=== PATIENT | female | born 1955 | race Caucasian/White ===

== ENCOUNTER 2023-11-17 11:33 | Outpatient (OUT) | payer MEDICARE, MEDICAID, SELFPAY ==
--- NOTE | 2023-11-17 11:37 | MM_ITS ---
Patient Name: FLAKITA GUADALUPE MR#: [id number] : 1955 Exam Date: 11/17/2023 Ordering Doctor: DR Dragan Gómez . RADIOLOGY REPORT PROCEDURE: MM TOMOSYNTHESIS SCREENING BI COMPARISON: MG MAMM SCREEN 3D JOSAFAT CAD, 07/05/2022. MG MAMM SCREEN JOSAFAT W CAD, 10/27/2020. MG MAMM SCREEN JOSAFAT W CAD, 09/23/2017. MG MAMM JOSAFAT SCRN W CAD DIG, 07/29/2013. INDICATIONS: screening Calculator Name NCI Breast Cancer Risk Assessment Tool 5 Year Breast Cancer Risk 3.70% Lifetime Breast Cancer Risk 11.80% Personal Breast Cancer No Personal Ovarian Cancer No Treatments None Family Cancers Sister with breast cancer at age 48; Aunt-maternal with breast cancer at age ~45; Aunt-maternal with breast cancer at age ~45; Aunt-maternal with breast cancer at age ~45; Mother with etiology unkwn. cancer at age 68; Brother with lung cancer at age 66. LOCATION: [facility] BREAST COMPOSITION: Scattered areas fibroglandular density. FINDINGS: DIAGNOSTIC CATEGORY 2--BENIGN FINDING: RIGHT BREAST: No significant suspicious finding. No significant change has occurred. LEFT BREAST: No significant suspicious finding. Scattered benign-appearing lymph nodes are present. No significant change has occurred. RECOMMENDATIONS: ROUTINE MAMMOGRAM AND CLINICAL EVALUATION IN 12 MONTHS. PLEASE NOTE: A NORMAL MAMMOGRAM DOES NOT EXCLUDE THE POSSIBILITY OF BREAST CANCER. A CLINICALLY SUSPICIOUS PALPABLE LUMP SHOULD BE BIOPSIED. Dictated by: Elvin Chu M.D. on 11/19/2023 at 12:20 Approved by: Elvin Chu M.D. on 11/19/2023 at 12:22
[2023-11-17 12:35] LABS: Hematocrit 39.3 % (36.0-48.0); Hemoglobin 12.6 g/dL (12.0-16.0); Mean Corpuscular HGB Conc 32.1 g/dL (29.9-35.2); Mean Corpuscular Hemoglobin 28.3 pg (26.7-34.0); Mean Corpuscular Volume 88.1 fL (81.0-99.0); Mean Platelet Volume 11.5 fL (9.5-13.5); Platelet Count 232 10^3/uL (150-450); Red Blood Count 4.46 10^6/uL (4.20-5.40); Red Cell Distribution Width 13.2 % (11.0-15.0); White Blood Count 11.3 10^3/uL (4.0-11.0)
[2023-11-17 12:46] LABS: Estimated Average Glucose 114 mg/dL; Glycohemoglobin A1C 5.6 % (4.5-6.2)
[2023-11-17 12:49] LABS: Alanine Aminotransferase 25 U/L (14-59); Albumin Globulin Ratio 0.9; Albumin Level 3.5 g/dL (3.4-5.0); Alkaline Phosphatase 70 U/L (46-116); Aspartate Amino Transferase 11 U/L (15-37); BUN Creatinine Ratio 19.6; Bilirubin Total 0.3 mg/dL (0.2-1.0); Calcium 8.7 mg/dL (8.5-10.1); Carbon Dioxide 27.3 mmol/L (21.0-32.0); Chloride 102 mmol/L (98-107); Chol HDL Ratio 3.4; Cholesterol 201 mg/dL (<=200); Estimated GFR (African America >60 (>=60); Estimated GFR (Non-African Ame 57 (>=60); Glucose 103 mg/dL (74-106); HDL Cholesterol 59 mg/dL (40-60); Potassium 4.3 mmol/L (3.5-5.1); Sodium 140 mmol/L (136-145); Total Protein 7.5 g/dL (6.4-8.2); Triglycerides 110 mg/dL (<=150)
[2023-11-17 12:50] LABS: Free T3 2.44 pg/mL (2.18-3.98); Thyroid Stimulating Hormone 1.671 uIU/mL (0.358-3.740)
[2023-11-17 13:19] LABS: Eosinophils Absolute Manual 3.84 10^3/uL (0.00-0.70); Lymphocytes Absolute Manual 2.37 10^3/uL (1.20-3.80); Monocytes Absolute Manual 0.79 10^3/uL (0.30-0.80); Segmented Neut Absolute Manual 4.29 10^3/uL (1.4-6.5)
== END 2023-11-17 11:34 | disposition home or self-care (01) ==
LOC: MAMMO 11:33
PROVIDERS: PCP Family Medicine; Visit Provider Family Medicine
DX: Z12.31 Encounter for screening mammogram for malignant neoplasm of breast (principal); E03.9 Hypothyroidism, unspecified; F41.9 Anxiety disorder, unspecified; E78.5 Hyperlipidemia, unspecified; R73.09 Other abnormal glucose; Z12.12 Encounter for screening for malignant neoplasm of rectum; D64.9 Anemia, unspecified; E55.9 Vitamin D deficiency, unspecified; Z80.3 Family history of malignant neoplasm of breast; Z80.1 Family history of malignant neoplasm of trachea, bronchus and lung; Z80.8 Family history of malignant neoplasm of other organs or systems
CPT/HCPCS: 36415; 77063; 77067; 80053; 80061; 82306; 83036; 83540; 84436; 84443; 84481; 85007; 85027

== ENCOUNTER 2024-12-15 10:18 | Outpatient (OUT) | payer MEDICARE, MEDICAID, SELFPAY ==
[2024-12-15 10:42] LABS: Hematocrit 38.6 % (36.0-48.0); Mean Corpuscular HGB Conc 33.7 g/dL (29.9-35.2); Mean Corpuscular Volume 86.2 fL (81.0-99.0); Mean Platelet Volume 10.9 fL (9.5-13.5); Platelet Count 245 10^3/uL (150-450); Red Blood Count 4.48 10^6/uL (4.20-5.40); Red Cell Distribution Width 13.6 % (11.0-15.0); White Blood Count 10.6 10^3/uL (4.0-11.0)
[2024-12-15 11:02] LABS: Basophils Abs Manual 0.31 10^3/uL (0.00-0.10); Eosinophils Absolute Manual 3.18 10^3/uL (0.00-0.70); Lymphocytes Absolute Manual 2.86 10^3/uL (1.20-3.80); Monocytes Absolute Manual 0.74 10^3/uL (0.30-0.80); Segmented Neut Absolute Manual 3.49 10^3/uL (1.4-6.5)
[2024-12-15 11:04] LABS: Anisocytosis 1+
[2024-12-15 11:31] LABS: Estimated Average Glucose 117 mg/dL; Glycohemoglobin A1C 5.7 % (4.5-6.2)
[2024-12-15 11:42] LABS: Alanine Aminotransferase 15 U/L (14-59); Albumin Level 3.5 g/dL (3.4-5.0); Alkaline Phosphatase 68 U/L (46-116); Anion Gap 14.2; Aspartate Amino Transferase 12 U/L (15-37); BUN Creatinine Ratio 19.1; Bilirubin Total 0.3 mg/dL (0.2-1.0); Calcium 8.8 mg/dL (8.5-10.1); Chloride 103 mmol/L (98-107); Chol HDL Ratio 3.1; Cholesterol 184 mg/dL (<=200); Estimated GFR (African America >60 (>=60 mL/min/1.73m^2); Estimated GFR (Non-African Ame >60 (>=60 mL/min/1.73m^2); Free T3 2.93 pg/mL (2.18-3.98); Globulin 3.6 g/dL; Glucose 98 mg/dL (74-106); HDL Cholesterol 60 mg/dL (40-60); Potassium 4.2 mmol/L (3.5-5.1); Sodium 142 mmol/L (136-145); Thyroid Stimulating Hormone 1.701 uIU/mL (0.358-3.740); Total Protein 7.1 g/dL (6.4-8.2); Triglycerides 100 mg/dL (<=150)
== END 2024-12-15 10:19 | disposition home or self-care (01) ==
LOC: LAB 10:21
PROVIDERS: PCP Family Medicine; Visit Provider Family Medicine
DX: E03.9 Hypothyroidism, unspecified (principal); D64.9 Anemia, unspecified; M54.16 Radiculopathy, lumbar region; I10 Essential (primary) hypertension; E78.5 Hyperlipidemia, unspecified; R73.09 Other abnormal glucose; Z12.12 Encounter for screening for malignant neoplasm of rectum; R53.83 Other fatigue
CPT/HCPCS: 36415; 80053; 80061; 83036; 83540; 84436; 84443; 84481; 85007; 85027

== ENCOUNTER 2024-12-22 22:16 | Emergency (ER) | payer MEDICARE, MEDICAID, SELFPAY ==
[2024-12-22 22:30] VITALS: BP 235/91; PULSE 72; TEMP 36.9; O2SAT 99; BMI 31.2
--- NOTE | 2024-12-22 22:33 | PC.NURSE ---
complains of left knee and left lower leg pain onset 2 hours ago while taking her dog outside, this patient denies fall onto her left knee
[2024-12-22] MEDS: OXYCODONE HCL/ACETAMINOPHEN 5MG/325MG 1 TAB PO (23:01)
--- NOTE | 2024-12-22 23:01 | ED.LOWEXI1 ---
HPI HPI - Extremity Injury (Lower) General Chief Complaint: Extremity Injury, Lower Stated Complaint: left lower extremity pain Time Seen by Provider: 12/22/24 22:20 Source: patient Mode of arrival: Wheelchair Limitations: no limitations History of Present Illness HPI Narrative: This 69-year-old female presents for evaluation of left knee pain. The patient had just let her dog in and was bending over to take it out of its harness and then walked from 1 room into another room where there is a single stair. She states she stepped down onto the ground after stepping onto the stair and had sudden pain in her right knee. She did not fall. She has a pain in the anterior knee in the prepatellar area. She has no calf swelling or pain. She states she needs to know what is wrong with her knee because she is taking care of her 4-month-old grandson. She iced her knee with minimal improvement but did not take any pain medication prior to arrival. Related Data Allergies Allergy/AdvReac Type Severity Reaction Status Date / Time prednisone Allergy Severe Anaphylaxis Verified 12/22/24 22:30 Opioid HPI Opioid Management Most Recent Pain and Opioid Data: Last Pain Scale 7 12/22/24, 23:01 Last MAR Pain Assessment 12/22/24, 23:01 Review of Systems ROS Status of ROS 10 or more systems reviewed and unremarkable except as noted in history and below PFSH PFSH Social History Little interest or pleasure in doing things: not at all Feeling down, depressed, or hopeless: not at all Exam Narrative Exam Narrative: Vital signs and Nursing Notes reviewed: Patient is afebrile with a normal pulse, blood pressure is elevated at 235/91, she is not hypoxic with pulse ox of 99% on room air General: Awake, alert, oriented, nontoxic but uncomfortable appearing female, no respiratory distress she is ambulatory with a slow steady gait HEENT: Normocephalic atraumatic, mucous membranes are moist and pink, eyes are clear, normal conjunctiva, vision is grossly intact Chest: Lungs are clear to auscultation with good air entry, there is no wheezing rhonchi or rales appreciated no accessory muscle use, patient is speaking in complete sentences-no chest wall tenderness to palpation CVS: Regular rate and rhythm S1-S2, no murmurs rubs or gallops, pulses are brisk and equal bilaterally ABD: Soft, nondistended, nontender, no rebound guarding or rigidity, bowel sounds are normal, no pulsatile masses appreciated Extremities: There is tenderness to the anterior knee without bony deformity or effusion noted. There is specific point tenderness at the prepatellar area. Did not appreciate any tenderness or swelling in the posterior popliteal area. There is no calf swelling or tenderness. Feet are warm and sensate Skin: Normal in appearance without rash,pallor, petechiae or purpura Neuro: No focal deficits Constitutional Vital Signs, click to edit/add: Last Vital Signs Temp 98.4 F 12/22/24 22:30 Pulse 72 12/22/24 22:30 Resp 18 12/22/24 22:30 BP 235/91 H 12/22/24 22:30 Pulse Ox 99 12/22/24 22:30 O2 Del Method Room Air 12/22/24 22:30 Course Vital Signs Vital signs: Vital Signs Temperature 98.4 F 12/22/24 22:30 Pulse Rate 72 12/22/24 22:30 Respiratory Rate 18 12/22/24 22:30 Blood Pressure 235/91 H 12/22/24 22:30 Pulse Oximetry 99 12/22/24 22:30 Oxygen Delivery Method Room Air 12/22/24 22:30 Temperature 98.4 F 12/22/24 22:30 Pulse Rate 72 12/22/24 22:30 Respiratory Rate 18 12/22/24 22:30 Blood Pressure 235/91 H 12/22/24 22:30 Pulse Oximetry 99 12/22/24 22:30 Oxygen Delivery Method Room Air 12/22/24 22:30 MDM - Extremity Injury (Lower) MDM Narrative Medical decision making narrative: This 69-year-old male presents for evaluation of a left knee injury that she sustained at her house while letting her dog and and walking down a stair. She is uncertain if she twisted her leg or just landed too firmly on her left foot. She did not fall. She has some mild tenderness in the prepatellar area. Did not appreciate any large effusion or bony deformity. The joint was stable. There is no swelling or discomfort to the calf, ankle or foot. She was reluctant but ultimately agreed to take a Percocet for pain. X-ray of the left knee shows no acute fracture no acute dislocation with a small left knee joint effusion and no foreign body. I explained to the patient that the knee joint is complicated with ligaments and tendons and meniscus and her injury may include 1 or more of these soft tissues that are not able to be seen in an x-ray. She verbalizes understanding of this. Her left knee was wrapped in an Ross wrap for comfort and stability. She will be referred to outpatient orthopedics but states she will try to rehab her knee at home and will follow-up with outpatient orthopedics if her symptoms do not improve in the next several weeks. She does have an ongoing prescription for Percocet to use as needed for pain at home. Discharge Plan Discharge Chief Complaint: Extremity Injury, Lower Clinical Impression: Knee sprain Patient Disposition: Home, Self-Care Time of Disposition Decision: 23:54 Condition: Good Print Language: Romansh Instructions: Knee Sprain (ED), How to Use an Elastic Bandage (ED), P.R.I.C.E. Treatment (ED) Referrals: Dragan Gómez MD [Primary Care Provider, Family Practice] - 1 week Elvin Lama MD [Physician, Orthopedics] - 1 week Discharge Date/Time: 12/23/24 00:00
[2024-12-22 23:04] VITALS: BP 211/95; PULSE 63; O2SAT 99
[2024-12-22 23:31] VITALS: BP 177/81; PULSE 66; O2SAT 96
--- NOTE | 2024-12-23 00:01 | PC.NURSE ---
i gave this patient verbal and written discharge orders and this patient voices yes to understanding these. at time of discharge this patient voices no concerns and shows no signs of distress
== END 2024-12-23 | disposition home or self-care (01) ==
PROVIDERS: Emergency Provider Emergency Medicine; PCP Family Medicine
DX: S83.92XA Sprain of unspecified site of left knee, initial encounter (principal); X58.XXXA Exposure to other specified factors, initial encounter
CPT/HCPCS: 73564; 99283